=== PATIENT | male | born 2000 | race Caucasian/White ===

== ENCOUNTER 2020-07-13 15:42 | Emergency (ER) | payer OTHER, SELFPAY ==
[2020-07-13 15:54] VITALS: BP 138/79; PULSE 82; RESP 18; TEMP 37.1; O2SAT 100
--- NOTE | 2020-07-13 16:00 | ED.URI ---
HPI - URI/Sore Throat General Chief Complaint: Upper Respiratory Infection Stated Complaint: sore throat Time Seen by Provider: 07/13/20 16:00 Source: patient History of Present Illness HPI Narrative: Patient presents with sore throat. Denies any trouble swallowing denies any drooling. Patient denies any cough fever no upper respiratory symptoms. MD elicited complaint: sore throat Related Data Allergies Allergy/AdvReac Type Severity Reaction Status Date / Time amoxicillin Allergy Intermediate Rash Verified 07/13/20 16:07 clavulanic acid Allergy Intermediate Rash Verified 07/13/20 16:07 Review of Systems Review of Systems: Narrative: CONSTITUTIONAL: Denies fever, chills, or sweats. EYES: Denies visual changes, redness, or discharge. ENT: Denies rhinorrhea, congestion, , or otalgia. Reports a sore throat CARDIOVASCULAR: Denies chest pain, palpitations, or edema. RESPIRATORY: Denies cough or dyspnea. GASTROINTESTINAL: Denies abdominal pain, nausea, vomiting, or diarrhea. GENITOURINARY: Denies dysuria or hematuria. SKIN: Denies rash or itching. MUSCULOSKELETAL: Denies back pain, joint pain, or myalgia. NEUROLOGIC: Denies headache, numbness, or weakness. PSYCHIATRIC: Denies anxiety or depression. PMFSH Comments At time of signature, agree with nursing past medical, surgical, social and family history. There is no relevant family history pertinent to the presenting complaint Exam Narrative: Exam Narrative: GENERAL: Well-appearing, well-nourished, and in no acute distress. HEAD: Normocephalic, atraumatic. EYES: PERRLA and EOMI. ENT: Nares clear, no rhinorrhea or epistaxis. Mucous membranes moist. Mild pharyngeal erythremia, no exudate, no drooling able to open mouth fully no trismus NECK: Supple. CHEST: Clear to auscultation. No respiratory distress. HEART: Regular rate and rhythm. No murmur heard. Normal peripheral pulses. ABDOMEN: Soft, nontender, nondistended, normal active bowel sounds. EXTREMITIES: Normal range of motion. No edema. SKIN: Warm, dry, no rash. NEURO: No focal deficits. Alert and oriented x3. Martina Coma Scale Eye Opening: Spontaneous 4 Martina Coma Scale Motor: Obeys Commands 6 [place] Coma Scale Verbal: Oriented 5 Martina Coma Scale Total 15 Course Vital Signs Vital signs: Vital Signs Temperature 37.1 C 07/13/20 15:54 Pulse Rate 82 07/13/20 15:54 Respiratory Rate 18 07/13/20 15:54 Blood Pressure 138/79 07/13/20 15:54 Pulse Oximetry 100 07/13/20 15:54 Temperature 37.1 C 07/13/20 15:54 Pulse Rate 82 07/13/20 15:54 Respiratory Rate 18 07/13/20 15:54 Blood Pressure 138/79 07/13/20 15:54 Pulse Oximetry 100 07/13/20 15:54 Please YVES schedule a followup visit with your personal physician for further evaluation and treatment. Including recheck and discussion of your blood pressure. If your symptoms persist, change or worsen significantly before you can contact your personal physician then please, without delay, go to the emergency department for further evaluation MDM - URI/Sore Throat Differential Diagnosis Differential diagnosis: Likely upper respiratory infection, croup, otitis media, sinusitis, viral infection, bronchitis, influenza and pharyngitis Lab Data Labs: Strep Screen Positive Group A Strep *(Reference Range: Negative)* Critical Care Time Critical Care Time Critical Care Time: No Discharge Plan Discharge Clinical Impression: Pharyngitis Patient Disposition: Home, Self-Care Condition: Stable Instructions: Antibiotic Form, Pharyngitis (ED) Additional Instructions: Increase fluids especially juices and water Lyps-[id number] cough and cold medicine of your choice for your symptoms Salt water gargles, throat lozenges or throat sprays as desired change toothbrush in 3-5 days Antibiotic as directed--finished the medication It may take the antibiotic 2-3 days to control the fever/symptoms ) You tested positi
== END 2020-07-13 16:13 | disposition home or self-care (01) ==
PROVIDERS: Emergency Provider Nurse Practitioner Family; PCP Pediatrics
DX: J02.0 Streptococcal pharyngitis (principal)
CPT/HCPCS: 87880; 99213; G0463

== ENCOUNTER 2021-05-16 10:03 | Emergency (ER) | payer OTHER, SELFPAY ==
--- NOTE | ~2021-05-16 | XR_ITS ---
EXAMINATION: XR chest 2V DATE: 05/16/2021 10:47 INDICATION: Shortness of breath. TECHNIQUE: Frontal and lateral views of the chest were obtained. COMPARISON: None. FINDINGS: The chest demonstrates clear lungs without pneumonia, pleural effusion, or pneumothorax. Th e heart size is normal. IMPRESSION: 1. No acute cardiopulmonary disease. Reviewed, dictated and finalized at location A.
[2021-05-16 10:10] VITALS: BP 115/77; PULSE 81; RESP 18; TEMP 36.7; O2SAT 100
--- NOTE | 2021-05-16 10:31 | ED.SOB ---
HPI - SOB/Dyspnea General Chief Complaint: Shortness of Breath/Dyspnea Stated Complaint: Shortness of breath Time Seen by Provider: 05/16/21 10:20 Source: patient, family, RN notes reviewed and old records reviewed Mode of arrival: ambulatory Limitations: no limitations History of Present Illness HPI Narrative: 20 year old male presents to express care accompanied by father with complaints of shortness of breath since Thursday morning which came on suddenly. Patient states that he just feels like he can't take a deep breath. no retractions or any pursed lip breathing noted, SAO2 100% on room air. Patient states that he has a little nasal drainage, denies any sore throat, ear pain or any acute cough. Patient states that he went to the emergency room yesterday and they did nothing. Father states that patient did have an inhaler when he was younger that he used rarely with sports. Patient admits to using nicotine by vaping which he states he refers himself as 'vap' alcoholic for the past 3 years. Patient does admit also to daily marijuana use. and has been treated for anxiety in the past. Patient denies any recent travel or any exposure to known sick contacts. MD elicited complaint: shortness of breath Pertinent past history: other (vapes, asthma symptoms as child) Onset (ago): hour(s) (2) Context: anxiety and other (vapes) Timing: constant Severity: moderate Exacerbating factors: nothing Relieving factors: nothing Known history of: asthma (as child no problems for many years) Treatment prior to arrival: none Related Data Home oxygen amount: none Allergies Allergy/AdvReac Type Severity Reaction Status Date / Time amoxicillin Allergy Intermediate Rash Verified 05/16/21 10:49 clavulanic acid Allergy Intermediate Rash Verified 05/16/21 10:49 Review of Systems Review of Systems: Narrative: CONSTITUTIONAL: Denies fever, chills, or sweats. EYES: Denies visual changes, redness, or discharge. ENT: Positive clear rhinorrhea,no congestion, sore throat, or otalgia. CARDIOVASCULAR: Denies chest pain, palpitations, or edema. RESPIRATORY:Positive rare cough, positive dyspnea reports feels like he can't take a deep breath GASTROINTESTINAL: Denies abdominal pain, nausea, vomiting, or diarrhea. GENITOURINARY: Denies dysuria or hematuria. SKIN: Denies rash or itching. MUSCULOSKELETAL: Denies back pain, joint pain, or myalgia. NEUROLOGIC: Denies headache, numbness, or weakness. PSYCHIATRIC: Positive anxiety or depression. All systems reviewed & are unremarkable except as noted in HPI and below PMFSH Past Medical History Medical History (Updated 05/18/21 @ 08:10 by Shreya Patrick NP) Anxiety Dislocation of metacarpal joint Right History of strep sore throat Seasonal allergies Surgical History Surgical History (Updated 05/16/21 @ 10:50 by Shreya Patrick NP) History of tonsillectomy and adenoidectomy Family History Family History (Updated 05/18/21 @ 08:09 by Shreya Patrick NP) Grandparent Breast cancer Mother Anxiety Sibling Anxiety Social History Social History (Updated 05/16/21 @ 10:51 by Shreya Patrick NP) Tobacco type: e-cigarettes/vaping Substance use: current Substance use type: marijuana Last use: daily Living arrangements: with roommate(s) Gender identity (if verbalized by the patient): Male Comments At time of signature, agree with nursing past medical, surgical, social and family history. There is no relevant family history pertinent to the presenting complaint Exam Narrative: Exam Narrative: GENERAL: Well-appearing, well-nourished, and in no acute distress. HEAD: Normocephalic, atraumatic. EYES: PERRLA and EOMI. ENT: Nares clear, clear rhinorrhea no epistaxis. Mucous membranes moist.TM's normal with good light reflex, throat pink with no exudates or lesions tonsils absent NECK: Supple.no lymphadenopathy CHEST: Clear to auscultation. No respiratory distress.SAO2 100% on room air HEART: Reg
[2021-05-17 19:11] LABS: SARS-CoV-2 RNA PCR Negative
== END 2021-05-16 11:05 | disposition home or self-care (01) ==
PROVIDERS: Emergency Provider Registered Nurse; PCP Pediatrics
DX: R06.02 Shortness of breath (principal); Z20.822 Contact with and (suspected) exposure to COVID-19; F17.200 Nicotine dependence, unspecified, uncomplicated
CPT/HCPCS: 71046; 87081; 87880; 99213; C9803; G0463; U0003; U0005

== ENCOUNTER 2021-10-15 15:31 | Emergency (ER) | payer OTHER, SELFPAY ==
[2021-10-15 15:40] VITALS: BP 141/74; PULSE 103; RESP 18; TEMP 38; O2SAT 98
--- NOTE | 2021-10-15 16:13 | ED.MALEGU ---
HPI - Male Genitourinary General Chief complaint: Urogenital-Male Stated complaint: STD Exposure Source: patient Mode of arrival: ambulatory Limitations: no limitations History of Present Illness HPI Narrative: 21-year-old male presents to [facility] with concerns for STDs. Patient reports that his girlfriend is concerned that she has STDs at this time. Patient reports penile discharge, urinary symptoms, abdominal pain or flank pain. Patient denies history of STDs MD Complaint: other (Concern for STD) Relieving factors: none Exacerbating factors: none Associated symptoms: Reports denies other symptoms Related Data Sexually active: Yes Home Medications Medication Instructions Recorded Confirmed clindamycin HCl 300 mg PO TID 10/15/21 10/15/21 Allergies Allergy/AdvReac Type Severity Reaction Status Date / Time amoxicillin Allergy Intermediate Rash Verified 10/15/21 15:49 clavulanic acid Allergy Intermediate Rash Verified 10/15/21 15:49 Review of Systems Constitutional: Constitutional: Denies chills, Denies fever(s) and Denies weakness Cardiovascular: Cardiovascular: Denies chest pain Respiratory: Respiratory: Denies cough and Denies dyspnea Gastrointestinal: Gastrointestinal: Denies abdominal pain, Denies constipation, Denies diarrhea, Denies nausea and Denies vomiting Genitourinary: Genitourinary: Denies hematuria, Denies oliguria, Denies genital lesions, Denies dysuria, Denies penile discharge, Denies testicular pain, Denies urinary frequency and Denies urinary incontinence [facility] Past Medical History Medical History Anxiety Dislocation of metacarpal joint Right History of strep sore throat Seasonal allergies Surgical History Surgical History History of tonsillectomy and adenoidectomy Family History Family History Grandparent Breast cancer Mother Anxiety Sibling Anxiety Social History Social History Tobacco type: e-cigarettes/vaping Substance use: current Substance use type: marijuana Last use: daily Gender identity (if verbalized by the patient): Male Comments At time of signature, I agree with nursing past medical, surgical, social and family history. There is no relevant family history pertinent to the presenting complaint. Exam Const: General: no acute distress and alert Neck: Neck: normal visual inspection Resp: Effort & Inspection: normal respiratory effort Auscultation: clear to auscultation bilaterally Cardio: Rate: regular rate, not bradycardic and not tachycardic Rhythm: regular rhythm GI: GI Palp: Yes Soft to palpation and No Tenderness to palpation present (GI) Auscultation: normal bowel sounds Skin: General skin exam: normal color Rashes: no rashes Neuro: General: patient oriented x3, moves all extremities and no meningeal signs Extrem: General: normal to inspection Psych: Appearance: grossly normal Affect: normal affect Attitude: cooperative Thought content: Yes Normal thought content present Course Vital Signs Vital signs: Vital Signs Temperature 38.0 C H 10/15/21 15:40 Pulse Rate 103 H 10/15/21 15:40 Respiratory Rate 18 10/15/21 15:40 Blood Pressure 141/74 H 10/15/21 15:40 Pulse Oximetry 98 10/15/21 15:40 Temperature 38.0 C H 10/15/21 15:40 Pulse Rate 103 H 10/15/21 15:40 Respiratory Rate 18 10/15/21 15:40 Blood Pressure 141/74 H 10/15/21 15:40 Pulse Oximetry 98 10/15/21 15:40 MDM - Male Genitourinary MDM Narrative Medical decision making narrative: Urine sample obtained and sent to lab for STD testing. Patient agrees to abstain from intercourse pending STD results. Patient was not treated today for STDs as he is currently asymptomatic and girlfriend not been diagnosed with any STDs at t
== END 2021-10-15 16:20 | disposition home or self-care (01) ==
PROVIDERS: Emergency Provider Nurse Practitioner Family
DX: Z72.51 High risk heterosexual behavior (principal); F17.290 Nicotine dependence, other tobacco product, uncomplicated
CPT/HCPCS: 81003; 87491; 87591; 87661; 99213; G0463

== ENCOUNTER 2023-07-14 10:08 | Emergency (ER) | payer OTHER, SELFPAY ==
[2023-07-14 10:43] VITALS: BP 113/67; PULSE 59; RESP 16; TEMP 36.8; O2SAT 100
--- NOTE | 2023-07-14 12:08 | ED.URI ---
HPI - URI/Sore Throat General Chief Complaint: Upper Respiratory Infection Stated Complaint: Headache/Diarrhea/Sore Throat Time Seen by Provider: 07/14/23 12:08 Source: patient and RN notes reviewed Mode of arrival: ambulatory Limitations: no limitations History of Present Illness HPI Narrative: 22-year-old male presents with concern for sore throat, headache, stomachache, diarrhea, nasal congestion. He denies taking dxgp-[id number] medications. He denies fever. Denies known sick contacts. He has been sick for 2-3 days MD elicited complaint: sore throat and nasal congestion Related Data Allergies Allergy/AdvReac Type Severity Reaction Status Date / Time amoxicillin Allergy Intermediate Rash Verified 10/15/21 15:49 clavulanic acid Allergy Intermediate Rash Verified 10/15/21 15:49 Review of Systems Review of Systems: CONSTITUTIONAL: Denies malaise, chills, sweats, or fever. EYES: Denies visual changes, redness, or discharge. ENT: Reports rhinorrhea, congestion, and sore throat. CARDIOVASCULAR: Denies chest pain, palpitations, or edema. RESPIRATORY: Reports occasional cough. Denies dyspnea. GASTROINTESTINAL: Denies abdominal pain, nausea, vomiting, diarrhea SKIN: Denies rash or itching. MUSCULOSKELETAL: Denies myalgia. NEUROLOGIC: Denies headache. All systems reviewed & are unremarkable except as noted in HPI and below PMFSH Past Medical History Medical History Anxiety Dislocation of metacarpal joint Right History of strep sore throat Seasonal allergies Surgical History Surgical History History of tonsillectomy and adenoidectomy Family History Family History Grandparent Breast cancer Mother Anxiety Sibling Anxiety Social History Social History Tobacco type: e-cigarettes/vaping Substance use: current Substance use type: marijuana Last use: daily Living arrangements: with roommate(s) Gender identity (if verbalized by the patient): Male Comments At time of signature, agree with nursing past medical, surgical, social and family history. There is no relevant family history pertinent to the presenting complaint Exam Narrative: GENERAL: Well-appearing, well-nourished, and in no acute distress. HEAD: Normocephalic EYES: PERRLA, conjunctivae clear ENT: Nares clear, turbinates edematous and erythematous, clear discharge. Mucous membranes moist. TM pearly duong with dull light reflex bilaterally; no tragal tenderness. Oropharynx not erythematous without lesions. Tonsils not enlarged and without exudate, no drooling, no hoarseness, no trismus, uvula midline. NECK: Supple. No lymphadenopathy CHEST: Clear to auscultation, breath sounds equal. No wheezing, rhonchi, rales, or stridor. No respiratory distress, speaks in full sentences. HEART: Regular rate and rhythm. No murmur heard. SKIN: Warm, dry, no rash. NEURO: Alert and oriented x3. PSYCH: Normal mood and affect Course Course Emergency Course: Patient is aware of diagnosis, understands and agrees to treatment plan. Anticipatory guidance given. Patient agrees to follow-up as directed and is aware of reasons to seek care at the emergency department. Portions of this record may have been created with voice recognition software Level of Care: Express Care Visit Vital Signs Vital signs: Vital Signs Temperature 98.3 F 07/14/23 10:43 Pulse Rate 59 L 07/14/23 10:43 Respiratory Rate 16 07/14/23 10:43 Blood Pressure 113/67 07/14/23 10:43 Pulse Oximetry 100 07/14/23 10:43 Oxygen Delivery Room Air 07/14/23 10:43 Temperature 98.3 F 07/14/23 10:43 Pulse Rate 59 L 07/14/23 10:43 Respiratory Rate 16 07/14/23 10:43 Blood Pressure 113/67 07/14/23 10:43 Pulse Oximetry 100 07/14/23 10:43 Oxygen Del
== END 2023-07-14 12:17 | disposition home or self-care (01) ==
PROVIDERS: Emergency Provider Nurse Practitioner
DX: J06.9 Acute upper respiratory infection, unspecified (principal); F17.219 Nicotine dependence, cigarettes, with unspecified nicotine-induced disorders; Z20.822 Contact with and (suspected) exposure to COVID-19
CPT/HCPCS: 87081; 87426; 87880; 99213; C9803; G0463

== ENCOUNTER 2024-07-22 16:03 | Emergency (ER) | payer OTHER, SELFPAY ==
--- NOTE | 2024-07-22 16:07 | ED.URI ---
HPI - URI/Sore Throat General Chief Complaint: Upper Respiratory Infection Stated Complaint: Congestion/Cough Time Seen by Provider: 07/22/24 16:20 Source: patient and RN notes reviewed Mode of arrival: ambulatory Limitations: no limitations History of Present Illness HPI Narrative: 23-year-old male presents with concern for 3-4 day history of sinus congestion, drainage, cough. Reports exposure to COVID. Reports he took Tylenol home. MD elicited complaint: cough Related Data Allergies Allergy/AdvReac Type Severity Reaction Status Date / Time amoxicillin Allergy Intermediate Rash Verified 10/15/21 15:49 clavulanic acid Allergy Intermediate Rash Verified 10/15/21 15:49 Review of Systems Review of Systems: CONSTITUTIONAL: Denies malaise, chills, sweats, or fever. EYES: Denies visual changes, redness, or discharge. ENT: Reports rhinorrhea, congestion CARDIOVASCULAR: Denies chest pain, palpitations, or edema. RESPIRATORY: Reports cough. Denies dyspnea. GASTROINTESTINAL: Denies abdominal pain, nausea, vomiting, diarrhea SKIN: Denies rash or itching. MUSCULOSKELETAL: Denies myalgia. NEUROLOGIC: Denies headache. All systems reviewed & are unremarkable except as noted in HPI and below PMFSH Past Medical History Medical History Anxiety Dislocation of metacarpal joint Right History of strep sore throat Seasonal allergies Surgical History Surgical History History of tonsillectomy and adenoidectomy Family History Family History Grandparent Breast cancer Mother Anxiety Sibling Anxiety Social History Social History Tobacco type: e-cigarettes/vaping Substance use: current Substance use type: marijuana Last use: daily Living arrangements: with roommate(s) Gender identity (if verbalized by the patient): Male Comments At time of signature, agree with nursing past medical, surgical, social and family history. There is no relevant family history pertinent to the presenting complaint Exam Narrative: GENERAL: Well-appearing, well-nourished, and in no acute distress. HEAD: Normocephalic EYES: PERRLA, conjunctivae clear ENT: Nares clear. Mucous membranes moist. TM pearly duong with dull light reflex bilaterally; no tragal tenderness. Oropharynx not erythematous without lesions. Tonsils not enlarged and without exudate, no drooling, no hoarseness, no trismus, uvula midline. NECK: Supple. No lymphadenopathy CHEST: Clear to auscultation, breath sounds equal. No wheezing, rhonchi, rales, or stridor. No respiratory distress, speaks in full sentences. HEART: Regular rate and rhythm. No murmur heard. SKIN: Warm, dry, no rash. NEURO: Alert and oriented x3. PSYCH: Normal mood and affect Course Course Emergency Course: Patient is aware of diagnosis, understands and agrees to treatment plan. Anticipatory guidance given. Patient agrees to follow-up as directed and is aware of reasons to seek care at the emergency department. Portions of this record may have been created with voice recognition software Level of Care: Express Care Visit Vital Signs Vital signs: Reviewed. MDM - URI/Sore Throat MDM Narrative Medical decision making narrative: Differential diagnosis considered: Grayson virus, strep pharyngitis, allergic rhinitis, upper respiratory tract infection, sinusitis, rhinosinusitis, nasopharyngitis. viral pharyngitis, otitis media, otitis externa, pneumonia, bronchitis, viral cough syndrome, viral syndrome, and influenza. Exam findings show no acute concerns or changes; patient is non-toxic appearing and is in no distress. Patient is appropriate for outpatient treatment and follow-up. Lab Data Attestation: I reviewed the patient's lab results. Critical Care Time Critical Care Time Thaddeus
[2024-07-22 16:16] VITALS: BP 109/67; PULSE 65; RESP 16; TEMP 37.4; O2SAT 98
[2024-07-22 16:30] LABS: EDCOVIDSCREEN Positive (Negative)
== END 2024-07-22 16:30 | disposition home or self-care (01) ==
PROVIDERS: Emergency Provider Nurse Practitioner
DX: R05.9 Cough, unspecified (principal); U07.1 COVID-19; F17.290 Nicotine dependence, other tobacco product, uncomplicated; F12.90 Cannabis use, unspecified, uncomplicated
CPT/HCPCS: 87426; 99213; G0463

== ENCOUNTER 2025-05-24 16:47 | Emergency (ER) | payer SELFPAY ==
--- OUTSIDE RECORDS SUMMARY | 2025-05-24 16:49 | XMS_ITS | Referral Summary ---
Author Organization [facility] Address [address] [place] [address] Care Team Providers Care Housekeeping Manager Name Role Phone No, Physician Primary Care Provider [phone] Allergies Active Allergy Reactions Criticality Noted Date Comments Amoxicillin-Pot Clavulanate Rash Medium 06/13/20 21 Medications omeprazole (PriLOSEC) 40 mg capsule Take 1 capsule (40 mg total) by mouth daily for 14 days 14 capsule 1 Active dicyclomine (BENTYL) 20 mg tablet Take 1 tablet (20 mg total) by mouth every 6 (six) hours as needed (abdominal pain) 20 tablet 1 Active ondansetron ODT (ZOFRAN-ODT) 4 mg disintegrating tablet Take 1 tablet (4 mg total) by mouth every 6 (six) hours as needed for nausea or vomiting 15 tablet 1 Active clindamycin (CLEOCIN) 300 mg capsuleIndications: Skin/Soft Tissue Infection Take 1 capsule (300 mg total) by mouth 3 (three) times a day 30 capsule 1 Active ibuprofen (ADVIL,MOTRIN) 600 mg tablet Take 1 tablet (600 mg total) by mouth 3 (three) times a day Take with food. 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 Acne vulgaris 05/01/2016 Social History Tobacco Use Types Packs/Day Years Used Date Smoking Tobacco: Never Smokeless Tobacco: Never Tobacco Cessation:Counseling Given: Not Answered Alcohol Use Standard Drinks/Week Comments Not Currently 0 (1 standard drink = 0.6 oz pur e alcohol) Personal Safety Answer Date Recorded Getting School Help Needed Not on file 01/15 Sex and Gender Information Value Date Recorded Sex Assigned at Not on file Legal Sex Male 10:59 AM [employer] Gender Identity Not on file Sexual Orientation Not on file Last Filed Vital Signs Vital Sign Reading Time Taken Comments Blood Pressure 112/68 08/06/2023 10:24 AM CDT Pulse 94 08/06/2023 10:24 AM CDT Temperature 36.8 C (98.2 F) 08/06/2023 10:24 AM CDT Respiratory Rate 12 08/06/2023 10:24 AM CDT Oxygen Saturation 99% 08/06/2023 10:24 AM CDT Inhaled Oxygen Concentration - - Weight 79.4 kg (175 lb) 08/06/2023 10:24 AM CDT Height 177.8 cm (5' 10) 08/06/2023 10:24 AM CDT Body Mass Index 25.11 08/06/2023 10:24 AM CDT Plan of Treatment Not on file Insurance [id number] [place] [address] [facility] Care Teams Housekeeping Manager Relationship Specialty Start Date End Date No, Physician PCP - General 06/21/21
--- OUTSIDE RECORDS SUMMARY | 2025-05-24 16:49 | XMS_ITS | Clinical Summary ---
Author Organization [facility] Address [address] [place] [address] Care Team Providers Care Sighter Name Role Phone Unavailable Primary Care Provider Unavailabl e Source Comments [facility],non-owned Affiliates and Associated Physician Practices is amultiple site organization consisting of ambulatory clinics and hospital sitesin [place], [place], [place] and [place]. This disclosure is being madepursuant to the Care Everywhere program and may not contain all information available regarding this patient. Last updated 18.[facility] Allergies Active Allergy Reactions Criticality Noted Date Comments Amoxicillin-Pot Clavulanate Rash Medium 06/13/20 21 Medications * Be aware that medications may not be up to date on this document. Alwaysverify current medications with the patient. 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 Gender Identity Not on file Sexual Orientation Not on file Last Filed Vital Signs Vital Sign Reading Time Taken Comments Blood Pressure 127/86 06/19/2021 7:10 PM CDT Pulse 62 06/19/2021 7:10 PM CDT Temperature 36.6 C (97.8 F) 06/19/2021 7:10 PM CDT Respiratory Rate 16 06/19/2021 7:10 PM CDT Oxygen Saturation 98% 06/19/2021 7:10 PM CDT Inhaled Oxygen Concentration - - Weight 74.8 kg (165 lb) 06/19/2021 7:10 PM CDT Height 175.3 cm (5' 9) 06/19/2021 7:10 PM CDT Body Mass Index 24.37 06/19/2021 7:10 PM CDT Plan of Treatment Health Maintenance Due Date Last Done Comments HIV SCREENING 2015 HPV VACCINE (1 - Male 3-dose series) 2015 HEPATITIS C SCREENING 08/30/2018 DTAP/TDAP/TD VACCINES (1 - Tdap) 2019 HEPATITIS B VACCINE (1 of 3 - 19+ 3-dose series) 2019 COVID-19 VACCINE (1 - 2023-2 5 season) 2024 DEPRESSION SCREENING 11/02/2024 INFLUENZA VACCINE (#1) 2025 ZOSTER VACCINE (1 of 2) 2050 HIB VACCINE Aged Out No longer eligi ble based on patient's age to complete this topic MENINGOCOCCAL (Group B) VACC INE SHARED DECISION-MAKING Aged Out No longer eligibl e based on patient's age to complete this topic MENINGOCOCCAL GROUPS A/C/Y/W VACCINE Aged Out No longer eligible b ased on patient's age to complete this topic PNEUMOCOCCAL VACCINE Aged Out No long er eligible based on patient's age to complete this topic Insurance [facility]
--- OUTSIDE RECORDS SUMMARY | 2025-05-24 16:49 | XMS_ITS | Clinical Summary ---
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 Gender Identity Not on file Sexual Orientation Not on file Obstetrics History Last Filed Vital Signs Vital Sign Reading [...] 08/06/2023 10:24 AM CDT Plan of Treatment Health Maintenance Due Date Last Done Comments Depression Screening 2000 Hepatitis C Screening 2000 Regular Well Visit/Exam 18-64 2018 DTaP/Tdap/Td Vaccine (7 - Td or Tdap) 11/06/2020 11/06/2010, 02/16/2006, 12/28/2001, Additional history exists Influenza Vaccine (Season Ended) 2025 10/13/2016, 07/20/2012, 11/06/2010, Additional history exists Hepatitis B Screening Completed 03/09/2001 , 2000, 2000 Pneumococcal vaccine <65 Completed 006, 12/28/2001, 03/09/2001, Additional history exists Varicella Vaccines Completed 08/30/2009, 09/07/2001 HPV Vaccines Completed 11/16/2012, 090 03/2012, 05/03/2012 Insurance [facility] Care Teams Food Tester Relationship Specialty Start Date End Date No, Physician PCP - General 06/21/21
[2025-05-24 16:50] VITALS: BP 135/75; PULSE 92; RESP 20; TEMP 36.6; O2SAT 99
--- NOTE | 2025-05-24 17:19 | ED_ITS ---
HPI - Eye Problem General Chief complaint: Eye Problems Stated complaint: Right Eye Problem Time Seen by Provider: 05/24/25 17:19 Source: patient Mode of arrival: ambulatory Limitations: no limitations History of Present Illness HPI Narrative: 24-year-old male presented for complaint of right eye irritation for 5 days. Endorses Itching, redness and swelling have been worsening, and has had crusted drainage he has had a clean every morning. Denies vision changes, photophobia, eye pain, eye trauma or foreign body. chief complaint: eye pain Related Data Allergies Allergy/AdvReac Type Severity Reaction Status Date / Time amoxicillin Allergy Intermediate Rash Verified 05/24/25 16:58 clavulanic acid Allergy Intermediate Rash Verified 05/24/25 16:58 Review of Systems Review of Systems: CONSTITUTIONAL: Denies body aches, fever, chills EYES:Endorses swelling, redness and Itching to right eye; Denies visual changes FB sensation, photophobia ENT: Denies rhinorrhea, congestion, sore throat, or otalgia. CARDIOVASCULAR: Denies chest pain, palpitations RESPIRATORY: Denies cough or dyspnea. GASTROINTESTINAL: Denies abdominal pain, nausea, vomiting, or diarrhea. SKIN: Denies rash, itching, or wounds. MUSCULOSKELETAL: Denies back pain, joint pain, or myalgia. NEUROLOGIC: Denies headache, numbness, tingling, or weakness. All systems reviewed & are unremarkable except as noted in HPI and below PMFSH Past Medical History Medical History Anxiety Dislocation of metacarpal joint Right History of strep sore throat Seasonal allergies Surgical History Surgical History History of tonsillectomy and adenoidectomy Family History Family History Grandparent Breast cancer Mother Anxiety Sibling Anxiety Social History Social History Tobacco type: e-cigarettes/vaping Substance use: current Substance use type: marijuana Last use: daily Living arrangements: with roommate(s) Gender identity (if verbalized by the patient): Male Comments At time of signature, I have reviewed and agree with nursing past medical, surgical, social and family history unless otherwise noted. Please see nursing chart for further information. There is no relevant family history pertinent to the presenting complaint Exam Narrative: GENERAL: Well-appearing HEAD: Normocephalic, atraumatic. EYES: Right conjunctival injection, upper and lower eye lid swelling redness, pinpoint area of erythema to medial upper lid with more tenderness no apparent stye. Crusted drainage to lids. PERRLA, EOMI. Lid eversion shows no FB ENT: Mucous membranes pink and moist. No rhinorrhea. TMs normal bilaterally. Throat normal. Uvula midline. CHEST: Clear to auscultation. HEART: Regular rate and rhythm. SKIN: Warm, dry, no rash. Normal skin turgor. NEURO: No focal deficits. Alert and oriented x3 PSYCH: Normal affect. Course Course Emergency Course: Patient is aware of diagnosis, understands and agrees to treatment plan. Anticipatory guidance given. Patient agrees to follow-up as directed and is aware of reasons to seek care at the emergency department. Portions of this record may have been created with voice recognition software Level of Care: Express Care Visit Vital Signs Vital signs: Vital Signs Temperature 98 F 05/24/25 16:50 Pulse Rate 92 05/24/25 16:50 Respiratory Rate 20 05/24/25 16:50 Blood Pressure 135/75 05/24/25 16:50 Pulse Oximetry 99 05/24/25 16:50 Oxygen Delivery Room Air 05/24/25 16:50 Temperature 98 F 05/24/25 16:50 Pulse Rate 92 05/24/25 16:50 Respiratory Rate 20 05/24/25 16:50 Blood Pressure 135/75 05/24/25 16:50 Pulse Oximetry 99 05/24/25 16:50 Oxygen Delivery Room Air 05/24/25 16:50 MDM - Eye Problem MDM Narrative Medical decision making narrative: Discussed physical exam findings Consistent with conjunctivitis, shared decision-making will send antibiotic drops. Advised supportive measures and signs/symptoms to go to the ER. Pt is appropriate for outpt treatment and f/u. Differential Diagnosis Differential diagnosis: Likely corneal abrasion, conjunctivitis, acute iritis and other Discharge Plan Discharge Clinical Impression: Bacterial conjunctivitis Patient Disposition: Home Condition: Stable Instructions: Antibiotic Form, Conjunctivitis (ED) Additional Instructions: Avoid touching or rubbing your eye. Use over the counter lubricating eye drops as needed for irritation Use a warm or cool washcloth on your eye for comfort Use eyedrops as directed - you are contagious for 24 hours after starting the antibiotic Practice good handwashing and hygiene to prevent spread of infection You may take Tylenol or ibuprofen for pain Follow-up with PCP or compressor engineer if condition is not improving in 2-3days. Go to the emergency room if you have severe pain or pressure behind your eye, difficulty seeing, or other severe symptoms [facility] [phone] [facility] [phone] [facility] [phone] [facility] [phone] Patient Language: [place] Prescriptions: New polymyxin B sulf-trimethoprim 10,000 unit- 1 mg/mL drops 1 drp RIGHT EYE Q4HWA 7 Days Qty: 10 0RF Rx Instructions: while awake; do not exceed 6 doses in 24 hours Follow-up/Referrals: PHYSICIAN,GROOMING SALON MANAGER [Primary Care Provider] - Time of Disposition: 17:24
== END 2025-05-24 17:30 | disposition home or self-care (01) ==
PROVIDERS: Emergency Provider Nurse Practitioner Family
DX: H10.9 Unspecified conjunctivitis (principal); F12.90 Cannabis use, unspecified, uncomplicated
CPT/HCPCS: 99213; G0463